=== PATIENT | female | born 1975 | race Caucasian/White ===

== ENCOUNTER 2023-01-14 10:21 | Observation (INO) | payer SELFPAY ==
[2023-01-14 10:23] VITALS: BP 115/51; PULSE 110; RESP 18; TEMP 36.6; O2SAT 99; BMI 21.4
[2023-01-14 10:30] VITALS: BP 124/100; PULSE 112; RESP 22; O2SAT 98
--- NOTE | 2023-01-14 10:30 | PC.NURSE ---
Staff at bedside attempting to get IV, pt reports she was recently at [facility] in [place] for 5 hours and I just couldn't take the pain anymore . States they said my sugar was 919 I think . I had 1 IV attempt and pt immediately stated oh I'm flushed, take that out . Pt states, They only get my blood by a scan thing . MD aware
--- NOTE | 2023-01-14 10:42 | XR_ITS ---
FINAL REPORT CLINICAL HISTORY: chest pain COMPARISON: None FINDINGS: SINGLE VIEW CHEST The heart size is normal. The mediastinum is within normal limits. No acute pulmonary abnormality is identified. There is no evidence of pneumothorax. The bony thorax is intact. IMPRESSION: No acute cardiopulmonary process. Reviewed, Interpreted and Dictated by Galdino Hu III, MD Transcribed by Ramonita Miller Authenticated and [facility]
--- NOTE | 2023-01-14 10:47 | PC.NURSE ---
Dr. Estrella at bedside
--- NOTE | 2023-01-14 10:50 | PC.NURSE ---
DR ZAMBRANO AT BEDSIDE
--- NOTE | 2023-01-14 10:53 | CT_ITS ---
FINAL REPORT TECHNIQUE: Postcontrast axial images through the abdomen and pelvis were performed. This study was performed with techniques to keep radiation doses as low as reasonably achievable, (ALARA). Individualized dose reduction techniques using automated exposure control or adjustment of mA and/or kV according to the patient's size were employed. CLINICAL HISTORY: pain FINDINGS: Abdomen: The lung bases are clear. There is mild fatty infiltration of the liver. The patient is status post cholecystectomy. The spleen is unremarkable. The adrenals are normal. The pancreas is unremarkable. There is a small right renal cyst. The aorta is normal in caliber. No free fluid or adenopathy is identified. No findings for mechanical bowel obstruction are identified. Pelvis: The appendix is not identified. Patient is status post hysterectomy. The urinary bladder is unremarkable. No free fluid, free air, abscess or adenopathy is identified. IMPRESSION: Fatty liver. Reviewed, Interpreted and Dictated by Galdino Hu III, MD Transcribed by Dana Dugan Authenticated and [facility]
--- NOTE | 2023-01-14 10:53 | CT_ITS ---
FINAL REPORT CLINICAL HISTORY: pain FINDINGS: Thin section axial CT images of the chest were obtained with contrast. 3D reformatted images were also obtained. This study was performed with techniques to keep radiation doses as low as reasonably achievable (ALARA). Individualized dose reduction techniques using automated exposure control or adjustment of mA and/or kV according to the patient''s size were employed. There is no evidence of pulmonary embolism. There is no evidence of thoracic aortic aneurysm or dissection. There is no evidence of mediastinal or hilar mass or adenopathy. There is no evidence of pulmonary mass or nodule. No localized inflammatory process is seen within the lungs. There is a calcified granuloma in the left lower lobe. Limited images of the upper abdomen are unremarkable. IMPRESSION: No evidence of pulmonary embolism. No mass or localized inflammatory process. Reviewed, Interpreted and Dictated by Galdino Hu III, MD Transcribed by Dana Dugan Authenticated and [facility]
--- NOTE | 2023-01-14 11:01 | ECG_ITS ---
APPROVED REPORT Exam: Resting ECG HR:94 bpm ECG Measurements Heart Rate 94 AXES MN 148 P 61 QRSd 86 QRS 52 QT 478 T 26 QTc [address] DEVIATION AND MODERATE T-WAVE ABNORMALITY, CONSIDER ANTERIOR ISCHEMIA [-0.1+ mV T-WAVE IN V3/V4] ABNORMAL ECG UNCONFIRMED REPORT Electronically signed by : Rafi Steven MD 01/15/2023 08:40:53
--- NOTE | 2023-01-14 11:04 | HMH.EDGENADL ---
Discharge Plan Disposition Patient Disposition: Admitted as Observation Condition: Fair Clinical Impressions Clinical Impression: Hyperglycemia, Hypocalcemia Discharge ED Provider: Indigo Estrella General Adult HPI General Chief complaint: Weakness Stated complaint: shaky, off balance Time Seen by Provider: 01/14/23 10:28 Mode of Arrival: Ambulatory Limitations: No Limitations Description of Symptoms (Recalled from ER Triage Doc. by RN): PT WITH C/O WEAKNESS, CHEST/RIB PAIN, SHORTNESS OF BREATH, UNCONTROLLED DIABETES, N/V AND 48 POUND WEIGHT LOSS. PT AT LAST NIGHT WITH REPORTED GLUCOSE OVER 900, PT LEFT BEFORE TREATMENT History of Present Illness HPI narrative: This patient is a 47-year-old female who has a history of IV drug use, insulin-dependent diabetes is not well controlled, and GERD presenting to the emergency department for evaluation with concern for high glucose readings, chest pain, and abdominal pain. Patient reports that she has had high blood glucose readings for several days now. She reports that she checks her blood sugar 3-4 times a day and is still using her home Lantus, but she cannot get it under control. She does that she had very poor oral intake, nausea, vomiting, and diarrhea. She states that she has constant pain everywhere, including her chest, upper back, and abdomen. She feels short of breath. She states that she has unintentionally lost 48 pounds over the last several weeks. She went to [facility] yesterday, where they yordy labs but were unable to see her prior to her leaving. She states they called her and told her that she was in DKA. She denies any fevers, chills, rashes, wounds, or other concerns. Related Data Home Medications Medication Instructions Recorded Confirmed esomeprazole magnesium 20 mg 20 mg PO DAILY Acid Reflux 01/14/23 01/14/23 capsule,delayed release insulin glargine 100 unit/mL 40 unit SQ DAILY Diabetes 01/14/23 01/14/23 subcutaneous solution insulin lispro 100 unit/mL 0 sliding scale dose SQ DAILYP PRN 01/14/23 01/14/23 subcutaneous pen (Humalog KwikPen Diabetes (U-100) Insulin) ropinirole 1 mg tablet 1 mg PO BID Restless Leg(S) 01/14/23 01/14/23 Allergies Allergy/AdvReac Type Severity Reaction Status Date / Time hydroxyzine [From Vistaril] Allergy Verified 01/14/23 10:45 morphine Allergy Verified 01/14/23 10:45 [facility] Disclaimer: The information contained in this section may have been updated after the patient was seen, as this information can be updated by other users. Medical History Hepatitis C History of blood transfusion Post-tonsillectomy hemorrhage Surgical History H/O section H/O: hysterectomy Hx of appendectomy Hx of cholecystectomy Hx of tonsillectomy Social History (Updated 01/14/23 @ 14:55 by Rodrigue Cox RN) Smoking Status: Current every day smoker alcohol intake: never current occupational status: employed and unemployed Travel in the last 8 weeks: None ROS Obtained: Yes All systems reviewed & no additional complaints except as documented Physical Exam General General appearance: alert and in no apparent distress Comment: Thin, appears older than stated age. Head Head exam: atraumatic and normocephalic Eye Eye exam: Present normal appearance, PERRL and EOMI ENT ENT exam: Present mucous membranes dry, normal external ear exam and other (Oral thrush) Neck Neck exam: Present normal inspection, full ROM and trachea midline; Absent tenderness Chest Chest inspection: Present normal inspection and symmetric chest wall rise; Absent tenderness Respiratory Respiratory exam: Present normal lung sounds bilaterally; Absent respiratory distress, wheezes, stridor or accessory muscle use Cardiovascular Cardiovascular exam: Present normal rhythm and tachycardia Abdominal Exam Abdominal
--- NOTE | 2023-01-14 11:37 | HMH.ITSTN ---
went to get pt for ct scan , no iv yet, wendi is to let us know when she gets an iv
[2023-01-14 11:49] LABS: VBG Base Excess 6.5 mmol/L (-2.4-2.3); VBG HCO3 30.7 mmol/L (23-30); VBG Oxygen Saturation 78.2 % (50-70); VBG PCO2 46.6 mmol/L (35-51); VBG PH 7.44 mmol/L (7.31-7.41); VBG PO2 38.2 mmol/L (28-40); VBG Total CO2 32.2 mmol/L (23-27)
[2023-01-14 11:52] LABS: Basophils % 0.5 % (0.1-2.0); Eosinophils # 0.1 K/mm3 (0.0-0.4); Eosinophils % 0.7 % (0.1-12.0); Hematocrit 45.9 % (37.0-47.0); Hemoglobin 15.2 g/dL (12.2-16.2); Lymphocytes # 1.1 K/mm3 (0.7-4.5); Mean Corpuscular HGB Conc 33.1 g/dL (31.8-35.4); Mean Corpuscular Hemoglobin 30.5 pg (27.0-31.2); Mean Corpuscular Volume 92.2 fl (81-99); Mean Platelet Volume 10.1 fl (7.4-10.4); Monocytes # 0.4 K/mm3 (0.1-1.0); Monocytes % 4.6 % (1.7-9.3); Neutrophils % 80.2 % (37.0-80.0); Platelet Count 220 K/mm3 (142-424); Red Blood Count 4.98 M/mm3 (4.20-5.40); Red Cell Distribution Width 13.5 % (11.5-17.5); White Blood Count 7.5 K/mm3 (4.8-10.8)
[2023-01-14 11:55] LABS: Lactic Acid 1.7 mmol/L (0.7-2.1)
[2023-01-14 11:56] LABS: Alanine Aminotransferase 20 U/L (12-78); Albumin/Globulin Ratio 1.1 (1.1-1.8); Alkaline Phosphatase 100 U/L (38-126); Anion Gap 13.2 mEq/L (5-15); Aspartate Amino Transferase 30 U/L (14-36); Bilirubin,Total 0.6 mg/dl (0.2-1.3); Blood Urea Nitrogen 5 mg/dl (7-17); Calcium 9.3 mg/dl (8.4-10.2); Carbon Dioxide 38 mmol/L (22.0-30.0); Chloride 83 mmol/L (98-107); Creatinine Clearance Estimated 106 mL/min (50-200); Estimated Glomerular Filt Rate 108 ml/min (>60); GFR (African American) 131 ML/MIN (>60); Globulin 3.7 g/dL (1.3-3.2); Lipase 30 U/L (23-300); Sodium 132 mmol/L (136-145); Total Protein,Serum 7.7 g/dl (6.3-8.2)
[2023-01-14 12:05] LABS: Glucose 737 mg/dl (74-100); Potassium 2.2 mmoL/L (3.5-5.1)
--- NOTE | 2023-01-14 12:06 | PC.NURSE ---
critical glucose and potassium results given to ER MD Estrella
--- NOTE | 2023-01-14 12:06 | PC.NURSE ---
rad at bedside for cxr
[2023-01-14 12:09] LABS: Troponin I 0.02 ng/ml (0.00-0.034)
[2023-01-14 12:14] LABS: T4 (Thyroxine) 11.9 ug/dl (5.53-11.0)
[2023-01-14 12:18] LABS: Acetone, Serum (Rapid) Small (None Detect)
[2023-01-14 12:20] LABS: HCG Qualitative, Serum Negative (Negative)
[2023-01-14 12:27] LABS: Thyroid Stimulating Hormone 0.78 uIU/mL (0.465-4.68)
--- NOTE | 2023-01-14 13:00 | PC.NURSE ---
PT TO CT
--- NOTE | 2023-01-14 13:16 | PC.NURSE ---
PT RETURNED FROM CT
--- NOTE | 2023-01-14 13:44 | PC.NURSE ---
dr. lópez agreeable to admit pt, notified care managment
--- NOTE | 2023-01-14 14:02 | PC.NURSE ---
Called Pharmacy and s/w Spencer. Pt does have Mag 20gm having at this time. s/w Smooth Estrella about her receiving 4mg/hr at this dosage concentration and she would like to d/c Mag gtt at this time.
--- NOTE | 2023-01-14 14:04 | PC.NURSE ---
report called to rashida morel on second floor at this time.
[2023-01-14 14:26] VITALS: BP 124/85; PULSE 99; RESP 20; TEMP 36.6; O2SAT 95
[2023-01-14 14:29] LABS: Magnesium 4.4 mg/dl (1.6-2.3)
[2023-01-14 14:36] VITALS: BP 114/72; PULSE 87; RESP 16; TEMP 36.7; O2SAT 92; BMI 21.9
--- NOTE | 2023-01-14 14:52 | EXP.HP ---
History of Present Illness *Admission Date: 01/14/23 *Reason for visit:: elevated blood sugars *History of present illness: Ms. Miranda is a 47 year old female with a past medical history of hepatitis C, diabetes mellitus, heroin addiction and GERD. She presented to the ED with several days of nausea and abdominal pain. She denies fevers, cough, shortness of breath and dysuria. Workup in the ED revealed K2.2, glucose 737, small acetone, and co2 38. vbg ph 7.44. chest cta ruled out pulmonary embolism. abd/pel ct revealed fatty liver. The patient takes insulin 40u daily and 20-30u of short acting TID. She misses doses frequently. She had quit heroin 3 years ago but relapsed 3 months ago and has been using frequently since then. [facility] Disclaimer: The information contained in this section may have been updated after the patient was seen, as this information can be updated by other users. Medical History Hepatitis C History of blood transfusion Post-tonsillectomy hemorrhage Surgical History H/O section H/O: hysterectomy Hx of appendectomy Hx of cholecystectomy Hx of tonsillectomy Social History (Updated 01/14/23 @ 14:55 by Rodrigue Cox RN) Smoking Status: Current every day smoker alcohol intake: never current occupational status: employed and unemployed Travel in the last 8 weeks: None Review of Systems Review of Systems Review of systems:: pertinent systems reviewed and negative unless documented below Constitutional Constitutional: Reports weight loss Meds Home Medications and Allergies Home Medications Medication Instructions Recorded Confirmed Type esomeprazole magnesium 20 mg 20 mg PO DAILY Acid Reflux 01/14/23 01/14/23 History capsule,delayed release insulin glargine 100 unit/mL 40 unit SQ DAILY Diabetes 01/14/23 01/14/23 History subcutaneous solution insulin lispro 100 unit/mL 0 sliding scale dose SQ DAILYP PRN 01/14/23 01/14/23 History subcutaneous pen (Humalog KwikPen Diabetes (U-100) Insulin) ropinirole 1 mg tablet 1 mg PO BID Restless Leg(S) 01/14/23 01/14/23 History New Prescriptions to Start Prescriptions: Allergies Allergy/AdvReac Type Severity Reaction Status Date / Time hydroxyzine [From Vistaril] Allergy Verified 01/14/23 10:45 morphine Allergy Verified 01/14/23 10:45 Exam Data for Last 24 hours Vital signs and Labs for Last 24 Hours: Temp Pulse Resp BP Pulse Ox O2 Del Method 98.1 F 87 16 114/72 92 L Room Air 01/14/23 14:36 01/14/23 14:36 01/14/23 14:36 01/14/23 14:36 01/14/23 14:36 01/14/23 14:36 Laboratory Results - last 24 hr 01/14/23 10:42: VBG pH 7.44 H, VBG pCO2 46.6, VBG pO2 38.2, VBG HCO3 30.7 H, VBG Total CO2 32.2 H, VBG O2 Saturation 78.2 H, VBG Base Excess 6.5 H 01/14/23 11:37: WBC 7.5, RBC 4.98, Hgb 15.2, Hct 45.9, MCV 92.2, MCH 30.5, MCHC 33.1, RDW 13.5, Plt Count 220, MPV 10.1, Neut % (Auto) 80.2 H, Lymph % (Auto) 14.0, Vernon % (Auto) 4.6, Eos % (Auto) 0.7, Baso % (Auto) 0.5, Neut # (Auto) 6.0, Lymph # (Auto) 1.1, Vernon # (Auto) 0.4, Eos # (Auto) 0.1, Baso # (Auto) 0.0, Sodium 132 L, Potassium 2.2 L*, Chloride 83 L, Carbon Dioxide 38 H, Anion Gap 13.2, BUN 5 L, Creatinine 0.60, Estimated Creat Clear 106, Estimated GFR 108, Est GFR ( Amer) 131, Glucose 737 H*, Lactate 1.7, Calcium 9.3, Total Bilirubin 0.6, AST 30, ALT 20, Alkaline Phosphatase 100, Troponin I 0.02, Total Protein 7.7, Albumin 4.0, Globulin 3.7 H, Albumin/Globulin Ratio 1.1, Lipase 30, TSH 0.78, Thyroxine (T4) 11.9 H 01/14/23 11:59: Serum HCG, Qual Negative, Acetone Level Small 01/14/23 14:10: Magnesium 4.4 H I & O for Last 24 hours: Intake & Output 01/11/23 01/12/23 01/13/23 01/14/23 23:59 23:59 23:59 23:59 Intake Total 2199 / 2199 Balance 2199 / 2199 Weight 57.805 kg Constitutional Constitutional: no acute dist
--- NOTE | 2023-01-14 15:44 | HMH.PHAINT1 ---
Pharmacy Intervention Comments: Medication history complete, medications verified with patient and fill history. Of note, patient is currently without insurance and has not picked up or taken her meds since August. Medications entered in the computer were from fill history and patient report. All medications patient reported were found on fill history except for the Lantus. - Leandra Hassan, PharmD Candidate 2023
[2023-01-14 15:57] VITALS: O2SAT 98
[2023-01-14 16:08] LABS: Troponin I 0.02 ng/ml (0.00-0.034)
--- NOTE | 2023-01-14 16:11 | ECG_ITS ---
APPROVED REPORT Exam: Resting ECG HR:81 bpm ECG Measurements Heart Rate 81 AXES AL 132 P 49 QRSd 90 QRS 31 QT 452 T -36 QTc [address] DEVIATION AND MODERATE T-WAVE ABNORMALITY, CONSIDER ANTEROLATERAL ISCHEMIA [-0.1+ mV T-WAVE IN V3-V6] ST DEVIATION AND MODERATE T-WAVE ABNORMALITY, CONSIDER INFERIOR ISCHEMIA [-0.1+ mV T-WAVE IN II/aVF] ABNORMAL ECG UNCONFIRMED REPORT Electronically signed by : Rafi Steven MD 01/15/2023 08:39:30
[2023-01-14 17:28] LABS: POC Glucose,Bedside 546 (70-110)
[2023-01-14 18:16] LABS: Anion Gap 14.2 mEq/L (5-15); Blood Urea Nitrogen 5 mg/dl (7-17); Calcium 8.5 mg/dl (8.4-10.2); Carbon Dioxide 33 mmol/L (22.0-30.0); Chloride 90 mmol/L (98-107); Creatinine Clearance Estimated 162 mL/min (50-200); Estimated Glomerular Filt Rate 173 ml/min (>60); GFR (African American) 209 ML/MIN (>60); Potassium 3.2 mmoL/L (3.5-5.1); Sodium 134 mmol/L (136-145)
[2023-01-14 18:24] LABS: Glucose 474 mg/dl (74-100)
[2023-01-14 18:26] LABS: Troponin I 0.03 ng/ml (0.00-0.034)
[2023-01-14 20:00] VITALS: BP 128/83; PULSE 80; RESP 18; TEMP 36.7; O2SAT 97
--- NOTE | 2023-01-14 20:52 | PC.NURSE ---
during med administration, pt was unable to tolerate PO KCL - was able to keep down 20 meq, and vomited up the other 20meq
[2023-01-14 21:04] LABS: Amphetamine/Metha Screen,Urine Negative ng/ml (<1000)
[2023-01-14 21:05] LABS: Barbiturates Screen,Urine Negative ng/ml (<200); Benzodiazepines Screen,Urine Negative ng/ml (<200)
[2023-01-14 21:06] LABS: Cannabinoid Screen,Urine Negative ng/ml (<50)
--- NOTE | 2023-01-14 21:29 | PC.NURSE ---
clarified diet order with dayna kim, pt is ok to resume diabetic diet per rene's report 01/14 - clear liquid diet stopped
--- NOTE | 2023-01-14 21:35 | PC.NURSE ---
pt with visible intermit shaking of arms and legs, diaphoresis (gown changed, warm blanket gave), chills, verbalized my legs feel like they're going to run off - administered Ativan per MAR
[2023-01-14 21:47] LABS: Cocaine Screen,Urine Negative ng/ml (<300)
[2023-01-14 21:48] LABS: Methadone Screen,Urine Negative ng/ml (<300); Opiate Screen,Urine Negative ng/ml (<300)
[2023-01-14 21:49] LABS: Phencyclidine Screen,Urine Negative ng/ml (<25)
--- NOTE | 2023-01-14 21:55 | PC.NURSE ---
julio paged to pt room, pt requested to leave AMA but educated staying would be beneficial for her if she is seeking treatment. new orders received. plan of care on going.
--- NOTE | 2023-01-14 23:00 | PC.NURSE ---
2207 to 2229-- pt administer diapzem IVP per JUL, pt presented with decreased alertness for roughly 15 minutes - arousable with heavy shaking, deana gabriel rn present at this time -- FSBS 251.VS BP 116/69 O2 100 HR 75 RR 18- MISSIONARY COORDINATORLinda kim notified and came to room to see pt, prior new order for methadone QID per JUL, face to face clarification for order and MISSIONARY COORDINATOR stated to go on and administer methadone 2247 - once pt was more alert to answer questions, she reported she last used heroin on 01/13 at 2100 - spoke with Kj from [facility], whom questioned the frequency of the methadone order as QID r/t the long half life of the drug. 2299 - pt A&OX4, educated on methadone, it is being held for the time being per pt request. She said she may take at a later time but she is comfortable currently. pt was took crackers and chicken noodle soup. bed locked and lowest position, cb in reach. plan of care ongoing.
[2023-01-14 23:13] LABS: Vitamin B12 583 pg/mL (239-931)
[2023-01-14 23:30] LABS: POC Glucose,Bedside 251 (70-110)
[2023-01-14 23:30] LABS: POC Glucose,Bedside 439 (70-110)
[2023-01-15] VITALS: BP 114/62; PULSE 86; PULSE 90; RESP 18; TEMP 37.1; O2SAT 97
[2023-01-15 01:14] LABS: POC Glucose,Bedside 273 (70-110)
--- NOTE | 2023-01-15 03:14 | PC.NURSE ---
pt requested methadone 0310. see MAR
[2023-01-15 04:00] VITALS: BP 137/75; PULSE 100; PULSE 75; RESP 18; TEMP 36.8; O2SAT 94; BMI 22.1
--- NOTE | 2023-01-15 04:44 | PC.NURSE ---
0400 pt rang out with c/o legging going crazy , tingling, tremors, nausea, rocking back and forth, request diazepam. see mar after administration, pt didn't have altered alertness compared to the first administration.
--- NOTE | 2023-01-15 06:27 | PC.NURSE ---
verified with nightwatch, paco 0630 Valium dosage, she stated it is okay to give
[2023-01-15 06:40] LABS: POC Glucose,Bedside 212 (70-110)
[2023-01-15 08:00] VITALS: BP 144/75; PULSE 81; RESP 18; TEMP 37.2; O2SAT 98
--- NOTE | 2023-01-15 09:44 | PC.NURSE ---
Pt. left AMA Dr. Gutiérrez aware.
--- NOTE | 2023-01-15 10:25 | SW/DCPLANNER ---
I received a consult on this patient regarding an interest in resources regarding heroin addiction. Patient left AMA before I could follow up regarding consult. Patient was provided an [facility] Resource List by nursing staff prior to leaving AMA this AM.
--- NOTE | 2023-01-15 18:56 | EXP.DC.SUM ---
General Admission date:: 01/14/23 Discharge date: 01/15/23 HPI HPI HPI: Ms. Miranda is a 47 year old female with a past medical history of hepatitis C, diabetes mellitus, heroin addiction and GERD. She presented to the ED with several days of nausea and abdominal pain. She denies fevers, cough, shortness of breath and dysuria. Workup in the ED revealed K2.2, glucose 737, small acetone, and co2 38. vbg ph 7.44. chest cta ruled out pulmonary embolism. abd/pel ct revealed fatty liver. The patient says that she often forgets to take her insulin but that she should be on long acting insulin 40u daily and 20-30u of short acting TID. She had quit heroin 3 years ago but relapsed 3 months ago and has been using frequently since then. Hospital Course Hospital Course Hospital Course: #hyperglycemia #heroin addiction #h/o hepatitis C #hypokalemia She was given potassium and by the day of discharge her K was 3.2. Hyperglycemia subsided after resuming her long acting insulin. Her glucose level on the day of discharge was 212. She was counseled on the importance of taking her insulin. She was provided resources to help her quit heroin. I wanted to keep her in the hospital one more day to know how to adjust her insulin regimen but she left the hospital against medical advice. I asked her to simplify her insulin regimen by taking glargine 40u once daily and to stop her Lispro 20-30u TID. Exam Data for Last 24 hours Vital signs and Labs for Last 24 Hours: Temp Pulse Resp BP Pulse Ox O2 Del Method 98.9 F 81 18 144/75 H 98 Room Air 01/15/23 08:00 01/15/23 08:00 01/15/23 08:00 01/15/23 08:00 01/15/23 08:00 01/15/23 09:00 Laboratory Results - last 24 hr 01/14/23 16:45: Vitamin B12 583 01/14/23 20:33: POC Glucose 439 H* 01/14/23 22:15: POC Glucose 251 H 01/14/23 : Urine Opiates Screen Negative, Urine Methadone Screen Negative, Ur Barbituates Screen Negative, Ur Phencyclidine Scrn Negative, Ur Amphetamines Screen Negative, U Benzodiazepines Scrn Negative, Urine Cocaine Screen Negative, U Marijuana (THC) Screen Negative 01/15/23 01:06: POC Glucose 273 H 01/15/23 06:31: POC Glucose 212 H I & O for Last 24 hours: Intake & Output 01/12/23 01/13/23 01/14/23 01/15/23 23:59 23:59 23:59 23:59 Intake Total 2300 / 2570 330 / 330 Output Total 0 / 0 0 / 0 Balance 2300 / 2570 330 / 330 Weight 57.805 kg 58.8 kg Results Data Completed and Pending Labs on day of discharge: Labs from last 24 hours 01/15/23 01/15/23 01/14/23 06:31 01:06 Unknown POC Glucose 212 H 273 H Vitamin B12 Urine Opiates Screen Negative Urine Methadone Screen Negative Ur Barbituates Screen Negative Ur Phencyclidine Scrn Negative Ur Amphetamines Screen Negative U Benzodiazepines Scrn Negative Urine Cocaine Screen Negative U Marijuana (THC) Screen Negative 01/14/23 01/14/23 01/14/23 22:15 20:33 16:45 POC Glucose 251 H 439 H* Vitamin B12 583 Urine Opiates Screen Urine Methadone Screen Ur Barbituates Screen Ur Phencyclidine Scrn Ur Amphetamines Screen U Benzodiazepines Scrn Urine Cocaine Screen U Marijuana (THC) Screen DS: Diagnosis Discharge Diagnosis (1) Hyperglycemia: Status: Acute Code(s): R73.9 - Hyperglycemia, unspecified (2) Heroin addiction: Status: Acute Code(s): F11.20 - Opioid dependence, uncomplicated (3) Hypokalemia: Status: Acute Code(s): E87.6 - Hypokalemia Meds Home Medications and Allergies Home Medications Medication Instructions Recorded Confirmed Type esomeprazole magnesium 20 mg 20 mg PO DAILY Acid Reflux 01/14/23 01/14/23 History capsule,delayed release insulin glargine 100 unit/mL 40 unit SQ DAILY Diabetes 01/14/23 01/14/23 History subcutaneous solution insulin lispro 100 unit/mL 0 sliding scale dose SQ DAILYP PRN 01/14/23 01/14/23 History subcutaneous pen (Humalog KwikPen
== END 2023-01-15 09:44 | disposition left against medical advice (07) ==
LOC: ER 11:40 → 2ND 14:35
PROVIDERS: Nurse Practitioner Family; Admitting Provider Internal Medicine; Emergency Provider Emergency Medicine; PCP Nurse Practitioner Family; Visit Provider Internal Medicine
DX: E11.65 Type 2 diabetes mellitus with hyperglycemia (principal); F11.20 Opioid dependence, uncomplicated; E87.6 Hypokalemia; Z79.4 Long term (current) use of insulin; B19.20 Unspecified viral hepatitis C without hepatic coma; F17.210 Nicotine dependence, cigarettes, uncomplicated
CPT/HCPCS: 36415; 71045; 71275; 74177; 80048; 80053; 80305; 82009; 82607; 82803; 82962; 83605; 83690; 83735; 83930; 84436; 84443; 84484; 84703; 85025; 87040; 93005; 99291; G0378; J2405; Q9967